=== PATIENT | female | born 1950 | race Caucasian/White ===

== ENCOUNTER → 2016-07-07 | Outpatient (CLI) | payer MEDICARE, BC | END | disposition home or self-care (01) | LOC: ROC 12:49 | PROVIDERS: ATTEND Radiology Radiation Oncology | DX: C50.811 Malignant neoplasm of overlapping sites of right female breast (principal) | CPT/HCPCS: G0463 ==

== ENCOUNTER 2019-05-05 08:25 | Day surgery (SDC) | payer MEDICARE, BC ==
[~2019-05-05] VITALS: Ht 160 cm; Wt 86.5 kg
[2019-05-05 09:23] VITALS: BP 79/83
[2019-05-05] MEDS ORDERED: SODIUM CHLORIDE 0.9% 1,000 ML IV SCH (09:26)
[2019-05-05 09:55] LABS: INTERNATIONAL NORMALIZED RATIO 1.13 (0.93-1.1)
[2019-05-05] MEDS ORDERED: LIDOCAINE 1%, 10ML ONE (10:10)
[2019-05-05] MEDS ORDERED: NALOXONE 1 MG/ML, 2ML ONE (10:35)
[2019-05-05] MEDS ORDERED: MIDAZOLAM 1 MG/ML, 5ML ONE (10:35)
[2019-05-05] MEDS ORDERED: FENTANYL PF 100 MCG/2ML ONE (10:35)
[2019-05-05] MEDS ORDERED: FLUMAZENIL 0.1 MG/1 ML, 5ML ONE (10:35)
== END 2019-05-05 13:00 | disposition home or self-care (01) ==
LOC: OUT 08:25
PROVIDERS: ATTEND Specialist
DX: C78.7 Secondary malignant neoplasm of liver and intrahepatic bile duct (principal); C50.411 Malignant neoplasm of upper-outer quadrant of right female breast
CPT/HCPCS: 36415; 47000; 76942; 85610; 88307; 88341; 88342; 88360; 99156; 99157; J2250; J3010; J2310